=== PATIENT | female | born 1965 | race Caucasian/White ===

== ENCOUNTER → 2023-06-17 07:12 | Outpatient (REF) | payer OTHER, SELFPAY | LOC: RCS 07:12 | PROVIDERS: ATTENDING PHYSICIAN Internal Medicine Cardiovascular Disease; FAMILY PHYSICIAN Internal Medicine | DX: E78.5 Hyperlipidemia, unspecified (principal); I49.8 Other specified cardiac arrhythmias; R94.39 Abnormal result of other cardiovascular function study | CPT/HCPCS: 78452; 93017; A9500 ==

== ENCOUNTER 2024-05-26 14:48 | Outpatient (RCR) | payer OTHER, SELFPAY | END 2024-05-26 23:59 | disposition home or self-care (01) | LOC: RPT 14:48 | PROVIDERS: ATTENDING PHYSICIAN Orthopaedic Surgery; FAMILY PHYSICIAN Internal Medicine | DX: M21.611 Bunion of right foot (principal); Z73.6 Limitation of activities due to disability | CPT/HCPCS: 97110; 97116; 97140; 97163; 97530 ==

== ENCOUNTER 2024-06-26 10:08 | Outpatient (RCR) | payer OTHER, SELFPAY | END 2024-06-26 23:59 | disposition home or self-care (01) | LOC: RPT 10:08 | PROVIDERS: ATTENDING PHYSICIAN Orthopaedic Surgery; FAMILY PHYSICIAN Internal Medicine | DX: M21.611 Bunion of right foot (principal); Z73.6 Limitation of activities due to disability; R26.2 Difficulty in walking, not elsewhere classified; R26.89 Other abnormalities of gait and mobility | CPT/HCPCS: 97110; 97112; 97140; 97530 ==

== ENCOUNTER 2024-07-07 09:02 | Outpatient (RCR) | payer OTHER, SELFPAY | END 2024-07-17 05:40 | disposition home or self-care (01) | LOC: RPT 09:02 | PROVIDERS: ATTENDING PHYSICIAN Orthopaedic Surgery; FAMILY PHYSICIAN Internal Medicine | DX: M21.611 Bunion of right foot (principal); R26.2 Difficulty in walking, not elsewhere classified; Z73.6 Limitation of activities due to disability; R26.89 Other abnormalities of gait and mobility | CPT/HCPCS: 97110; 97112; 97140; 97530 ==